=== PATIENT | female | born 1960 | race Caucasian/White ===

== ENCOUNTER 2020-05-16 08:42 | Outpatient (CLI) | payer BC ==
--- NOTE | 2020-05-16 09:40 | BD ---
EXAM: DEXA bone density examination HISTORY: 60-year-old postmenopausal female for screening COMPARISON: None FINDINGS: L1--bone mineral density 1.282 g/sq cm; T score 2.7 L2--bone mineral density 1.391 g/sq cm; T score 3.3 L3--bone mineral density 1.300 g/sq cm; T score 2.0 L4--bone mineral density 1.293 g/sq cm; T score 2.1 Total L1-L4--bone mineral density 1.314 g/sq cm; T score 2.4 Left femoral neck--bone mineral density0.749; T score -0.9 Total proximal left femur--bone mineral density 1.021; T score 0.6 IMPRESSION: Normal bone density. This patient has a 10 year WHO fracture risk of a major osteoporotic fracture of 8.2% and of a hip fracture of 0.4%.
== END 2020-05-16 08:43 | disposition home or self-care (01) ==
LOC: BICMAMMO 08:42
PROVIDERS: ATTEND Internal Medicine Rheumatology
DX: M81.0 Age-related osteoporosis without current pathological fracture (principal)
CPT/HCPCS: 77080

== ENCOUNTER 2020-05-30 12:01 | Outpatient (CLI) | payer BC ==
--- NOTE | 2020-05-30 12:17 | RAD ---
XR Knee Rt 2 View HISTORY: Right knee pain. Bilateral primary osteoarthritis of knee FINDINGS: No fracture or dislocation is identified. There are degenerative changes manifested by osteophyte for mation and joint space narrowing.
--- NOTE | 2020-05-30 12:17 | RAD ---
XR Knee Lt 2 View HISTORY: Left knee pain, bilateral primary osteoarthritis of knee FINDINGS: No fracture or dislocation is identified. There are degenerative changes manifested by osteophyte for mation and joint space narrowing.
== END 2020-05-30 12:02 | disposition home or self-care (01) ==
LOC: BICRAD 12:01
PROVIDERS: ATTEND Internal Medicine Rheumatology
DX: M17.0 Bilateral primary osteoarthritis of knee (principal)

== ENCOUNTER 2021-07-04 14:52 | Outpatient (CLI) | payer BC | END 2021-07-04 14:53 | disposition home or self-care (01) | LOC: BICMAMMO 14:52 | PROVIDERS: ATTEND Internal Medicine Rheumatology | DX: M81.0 Age-related osteoporosis without current pathological fracture (principal); M85.852 Other specified disorders of bone density and structure, left thigh | CPT/HCPCS: 77080 ==

== ENCOUNTER 2022-04-09 11:17 | Inpatient (IN) | payer BC ==
[2022-04-09 12:25] LABS: Anion Gap 23 mmol/L (10-20); BUN (Urea Nitrogen) 41 mg/dL (9.8-20.1); Calc. Creatinine Clearance 0 mL/min (70-130); Calcium 9.4 mg/dL (7.8-10.44); Carbon Dioxide 18 mmol/L (23-31); Chloride 96 mmol/L (98-107); Estimated GFR 26; Glucose 179 mg/dL (80-115); Potassium 3.3 mmol/L (3.5-5.1); Sodium 134 mmol/L (136-145)
[2022-04-09] MEDS ORDERED: NS 0.9% w/ 20 MEQ KCL 0 ML ONE (13:27)
[2022-04-09] MEDS ORDERED: NS 0.9% w/ 20 MEQ KCL 1,000 ML ONE (13:39)
[2022-04-09] MEDS ORDERED: D5 1/2 NS w/20 mEq KCL 1,000 ML ONE (14:02)
[2022-04-09] MEDS ORDERED: Acetaminophen 325 MG TAB PO PRN (15:15)
[2022-04-09] MEDS ORDERED: Ondansetron PF 4 MG/2 ML Vial IVP PRN ×2 (15:15→16:55)
[2022-04-09] MEDS ORDERED: Ondansetron ODT 4 MG TAB SL PRN (15:15)
[2022-04-09] MEDS ORDERED: Sodium Chloride 0.9% 1,000 ML IV PRN ×4 (15:30)
[2022-04-09] MEDS ORDERED: NS 0.9% w/ 20 MEQ KCL 1,000 ML/1,000 ML BAG IV PRN ×2 (15:30)
[2022-04-09] MEDS ORDERED: Dextrose 5 %-0.45 % NaCl 1,000 ML IV PRN (15:30)
[2022-04-09] MEDS ORDERED: HUMULIN R 100 UNITS in Sodium Chloride 0.9% 100 ML IVPB SCH (15:30)
[2022-04-09] MEDS ORDERED: Insulin Regular 300 UNITS/3 ML VIAL IVP SCH (15:30)
[2022-04-09] MEDS ORDERED: Dextrose 5% in Water 1,000 ML IV PRN ×2 (15:30→16:55)
[2022-04-09] MEDS ORDERED: Electrolyte Replacement Protocol FS PRN (15:35)
[2022-04-09] MEDS ORDERED: Dextrose 50% Abboject 50 ML SYRINGE SLOW IVP PRN ×2 (15:36→16:55)
[2022-04-09] MEDS: D5 1/2 NS w/20 mEq KCL 1,000 ML IV PRN ×2 (16:02→22:11)
[2022-04-09] MEDS ORDERED: hydrALAZINE 20 MG/ML VIAL SLOW IVP PRN (16:55)
[2022-04-09] MEDS ORDERED: Ondansetron ODT 4 MG TAB PO PRN (16:55)
[2022-04-09] MEDS ORDERED: HumaLOG 300 UNITS/3 ML VIAL SC PRN (16:55)
[2022-04-09] MEDS ORDERED: Acetaminophen 500 MG TAB PO PRN (16:55)
[2022-04-09] MEDS ORDERED: Electrolyte Replacement Protocol 1 EACH FS PRN (16:58)
[2022-04-09 18:44] LABS: Anion Gap 14 mmol/L (10-20); BUN (Urea Nitrogen) 36 mg/dL (9.8-20.1); Calc. Creatinine Clearance 47 mL/min (70-130); Calcium 8.8 mg/dL (7.8-10.44); Carbon Dioxide 24 mmol/L (23-31); Chloride 99 mmol/L (98-107); Estimated GFR 33; Glucose 194 mg/dL (80-115); Potassium 3.3 mmol/L (3.5-5.1); Sodium 134 mmol/L (136-145)
[2022-04-09] MEDS: Sodium Chloride 0.9% 1,000 ML IV SCH ×2 (18:48→22:12)
[2022-04-09] MEDS: cefTRIAXone\\ROCEPHIN 1 GM in Sodium Chloride 0.9% 100 ML IVPB SCH ×2 (18:49→20:12)
[2022-04-10] MEDS: D5 1/2 NS w/20 mEq KCL 1,000 ML IV PRN (02:14)
[2022-04-10 03:48] LABS: #Eosinphils 0.1 thou/uL (0.0-0.7); #Lymphocytes 1.5 thou/uL (1.20-3.40); #Monocytes 0.7 thou/uL (0.11-0.59); #Neutrophils 6.2 thou/uL (1.40-6.50); %Basophils 0.1 % (0.0-1.0); %Eosinophils 0.7 % (0.0-10.0); %Lymphocytes 17.8 % (21.0-51.0); %Monocytes 8.6 % (0.0-10.0); %Neutrophils 72.8 % (42.0-75.0); Hemoglobin 11.3 g/dL (12.0-16.0); Mean Corpuscular HGB CONC 33.4 g/dL (32.0-36.0); Mean Corpuscular Hemoglobin 29.5 pg (27.0-31.0); Mean Corpuscular Volume 88.2 fL (78.0-98.0); Mean Platelet Volume 8.6 fL (7.4-10.4); Platelet Count 212 thou/uL (130-400); RBC Distribution Width 14.1 % (11.5-14.5); Red Blood Cell (RBC) Count 3.84 mill/uL (4.20-5.40); White Blood Cell (WBC) Count 8.6 thou/uL (4.8-10.8)
[2022-04-10 04:06] LABS: Hemoglobin A1c 8.9 % (4.0-6.0)
[2022-04-10 04:08] LABS: Anion Gap 14 mmol/L (10-20); BUN (Urea Nitrogen) 23 mg/dL (9.8-20.1); Calc. Creatinine Clearance 66 mL/min (70-130); Calcium 8.1 mg/dL (7.8-10.44); Carbon Dioxide 21 mmol/L (23-31); Chloride 102 mmol/L (98-107); Estimated GFR 51; Glucose 208 mg/dL (80-115); Potassium 3.5 mmol/L (3.5-5.1); Sodium 133 mmol/L (136-145)
[2022-04-10] MEDS ORDERED: Potassium Chloride 20 MEQ TAB PO SCH (08:00)
[2022-04-10] MEDS: cefTRIAXone\\ROCEPHIN 1 GM in Sodium Chloride 0.9% 100 ML IVPB SCH (19:03)
[2022-04-10] MEDS ORDERED: cefTRIAXone\\ROCEPHIN 1 GM in Sodium Chloride 0.9% 100 ML IVPB SCH (21:00)
[2022-04-11 04:23] LABS: Anion Gap 18 mmol/L (10-20); BUN (Urea Nitrogen) 15 mg/dL (9.8-20.1); Calc. Creatinine Clearance 80 mL/min (70-130); Calcium 8.4 mg/dL (7.8-10.44); Carbon Dioxide 17 mmol/L (23-31); Chloride 102 mmol/L (98-107); Estimated GFR 64; Glucose 221 mg/dL (80-115); Potassium 3.9 mmol/L (3.5-5.1); Sodium 133 mmol/L (136-145)
[2022-04-11] MEDS: HumaLOG 300 UNITS/3 ML VIAL SC PRN (07:09)
[2022-04-11] MEDS: predniSONE 1 MG TAB PO SCH (09:23)
[2022-04-11] MEDS: Alogliptin 25 MG TAB PO SCH (09:24)
[2022-04-11] MEDS: Folic Acid 1 MG TAB PO SCH (09:24)
[2022-04-11] MEDS: Losartan 25 MG TAB PO SCH (09:25)
[2022-04-11] MEDS: glyBURIDE 5 MG TAB PO SCH (17:24)
[2022-04-12 04:07] LABS: SARS-CoV-2 NAA Rapid Test DETECTED (NotDetected)
[2022-04-12] MEDS: HumaLOG 300 UNITS/3 ML VIAL SC PRN ×2 (06:16→11:58)
[2022-04-12] MEDS: glyBURIDE 5 MG TAB PO SCH ×2 (08:14→17:27)
[2022-04-12] MEDS: predniSONE 1 MG TAB PO SCH (08:14)
[2022-04-12] MEDS: Losartan 25 MG TAB PO SCH (08:15)
[2022-04-12] MEDS: Folic Acid 1 MG TAB PO SCH (08:15)
[2022-04-12] MEDS: Alogliptin 25 MG TAB PO SCH (08:16)
[2022-04-12] MEDS ORDERED: metFORMIN 500 MG TAB PO SCH (10:15)
[2022-04-12] MEDS ORDERED: Insulin Glargine 30 UNITS/0.3 ML VIAL SC SCH ×2 (11:15→12:00)
[2022-04-12] MEDS ORDERED: Digoxin 0.5 MG/2 ML AMP SLOW IVP SCH (18:15)
[2022-04-12] MEDS ORDERED: Digoxin 0.5 MG/2 ML AMP ONE (18:20)
[2022-04-12] MEDS ORDERED: Sodium Chloride 0.9% 1,000 ML IV SCH (19:00)
[2022-04-12] MEDS: Diltiazem HCl 125 MG in Premix Bag 1 BAG IVPB SCH (19:38)
[2022-04-13 04:01] LABS: Anion Gap 16 mmol/L (10-20); BUN (Urea Nitrogen) 17 mg/dL (9.8-20.1); Calc. Creatinine Clearance 80 mL/min (70-130); Calcium 8.5 mg/dL (7.8-10.44); Carbon Dioxide 19 mmol/L (23-31); Chloride 98 mmol/L (98-107); Estimated GFR 64; Glucose 247 mg/dL (80-115); Magnesium 1.2 mg/dL (1.6-2.6); Sodium 130 mmol/L (136-145)
[2022-04-13] MEDS: Magnesium 2 GM/50 ML(in water) 2 GM in Premix Bag 1 BAG IVPB SCH ×2 (06:20→07:00)
[2022-04-13] MEDS: HumaLOG 300 UNITS/3 ML VIAL SC PRN (06:21)
[2022-04-13] MEDS ORDERED: Potassium Chloride 20 MEQ TAB PO SCH ×2 (08:00→16:45)
[2022-04-13] MEDS: Losartan 25 MG TAB PO SCH (09:32)
[2022-04-13] MEDS: Alogliptin 25 MG TAB PO SCH (09:32)
[2022-04-13] MEDS: glyBURIDE 5 MG TAB PO SCH ×2 (09:33→17:55)
[2022-04-13] MEDS: Folic Acid 1 MG TAB PO SCH (09:33)
[2022-04-13] MEDS: predniSONE 1 MG TAB PO SCH (09:33)
[2022-04-13] MEDS: Diltiazem HCl 125 MG in Premix Bag 1 BAG IVPB SCH (09:45)
[2022-04-13] MEDS: Insulin Glargine 30 UNITS/0.3 ML VIAL SC SCH (09:46)
[2022-04-13] MEDS: Enoxaparin Sodium 100 MG/ML SYRINGE SC SCH (20:44)
[2022-04-14 04:25] LABS: Anion Gap 16 mmol/L (10-20); BUN (Urea Nitrogen) 14 mg/dL (9.8-20.1); Calc. Creatinine Clearance 87 mL/min (70-130); Calcium 8.9 mg/dL (7.8-10.44); Carbon Dioxide 19 mmol/L (23-31); Chloride 100 mmol/L (98-107); Estimated GFR 70; Glucose 123 mg/dL (80-115); Magnesium 1.8 mg/dL (1.6-2.6); Potassium 3.2 mmol/L (3.5-5.1); Sodium 132 mmol/L (136-145)
[2022-04-14] MEDS ORDERED: Magnesium 2 GM/50 ML(in water) 2 GM in Premix Bag 1 BAG IVPB SCH (06:00)
[2022-04-14] MEDS ORDERED: Potassium Chloride 20 MEQ TAB PO SCH ×2 (08:00→08:15)
[2022-04-14] MEDS: Folic Acid 1 MG TAB PO SCH (08:46)
[2022-04-14] MEDS: Losartan 25 MG TAB PO SCH (08:46)
[2022-04-14] MEDS: predniSONE 1 MG TAB PO SCH (08:47)
[2022-04-14] MEDS: Alogliptin 25 MG TAB PO SCH (08:47)
[2022-04-14] MEDS: glyBURIDE 5 MG TAB PO SCH ×2 (08:47→17:02)
[2022-04-14] MEDS: Enoxaparin Sodium 100 MG/ML SYRINGE SC SCH ×2 (08:48→20:10)
[2022-04-14] MEDS: Insulin Glargine 30 UNITS/0.3 ML VIAL SC SCH (08:49)
[2022-04-14] MEDS: HumaLOG 300 UNITS/3 ML VIAL SC PRN (17:03)
[2022-04-15] MEDS: predniSONE 1 MG TAB PO SCH (07:46)
[2022-04-15] MEDS: Losartan 25 MG TAB PO SCH (07:46)
[2022-04-15] MEDS: Alogliptin 25 MG TAB PO SCH (07:47)
[2022-04-15] MEDS: Insulin Glargine 30 UNITS/0.3 ML VIAL SC SCH (07:47)
[2022-04-15] MEDS: glyBURIDE 5 MG TAB PO SCH ×2 (07:47→16:44)
[2022-04-15] MEDS: Enoxaparin Sodium 100 MG/ML SYRINGE SC SCH ×2 (07:47→21:21)
[2022-04-15] MEDS: Folic Acid 1 MG TAB PO SCH (07:47)
[2022-04-15] MEDS ORDERED: Metoprolol Tartrate 5 MG/5 ML VIAL ONE (08:18)
[2022-04-15] MEDS ORDERED: Metoprolol Tartrate 5 MG/5 ML VIAL IVP PRN (08:18)
[2022-04-15 08:55] LABS: Anion Gap 18 mmol/L (10-20); BUN (Urea Nitrogen) 12 mg/dL (9.8-20.1); Calc. Creatinine Clearance 89 mL/min (70-130); Calcium 9.1 mg/dL (7.8-10.44); Carbon Dioxide 19 mmol/L (23-31); Chloride 101 mmol/L (98-107); Estimated GFR 72; Glucose 208 mg/dL (80-115); Potassium 3.5 mmol/L (3.5-5.1); Sodium 134 mmol/L (136-145)
[2022-04-16] MEDS ORDERED: Amlodipine 10 MG TAB PO SCH (09:00)
[2022-04-16] MEDS: Folic Acid 1 MG TAB PO SCH (09:12)
[2022-04-16] MEDS: Enoxaparin Sodium 100 MG/ML SYRINGE SC SCH (09:12)
[2022-04-16] MEDS: predniSONE 1 MG TAB PO SCH (09:12)
[2022-04-16] MEDS: Amlodipine 5 MG TAB PO SCH (09:13)
[2022-04-16] MEDS: Insulin Glargine 30 UNITS/0.3 ML VIAL SC SCH (09:13)
[2022-04-16] MEDS: Losartan 25 MG TAB PO SCH (09:13)
[2022-04-16] MEDS: Alogliptin 25 MG TAB PO SCH (09:13)
[2022-04-16] MEDS: glyBURIDE 5 MG TAB PO SCH ×2 (09:14→16:01)
[2022-04-16] MEDS: HumaLOG 300 UNITS/3 ML VIAL SC PRN (17:15)
[2022-04-16] MEDS: Apixaban 5 MG TAB PO SCH (20:37)
[2022-04-17 08:17] LABS: #Basophils 0.1 thou/uL (0.0-0.2); #Eosinphils 0.1 thou/uL (0.0-0.7); #Lymphocytes 1.6 thou/uL (1.20-3.40); #Monocytes 0.9 thou/uL (0.11-0.59); #Neutrophils 5.9 thou/uL (1.40-6.50); %Basophils 1.3 % (0.0-1.0); %Eosinophils 1.1 % (0.0-10.0); %Lymphocytes 18.9 % (21.0-51.0); %Monocytes 10.2 % (0.0-10.0); %Neutrophils 68.6 % (42.0-75.0); Hemoglobin 12.6 g/dL (12.0-16.0); Mean Corpuscular HGB CONC 33.5 g/dL (32.0-36.0); Mean Corpuscular Hemoglobin 29.5 pg (27.0-31.0); Mean Corpuscular Volume 87.9 fL (78.0-98.0); Mean Platelet Volume 8.2 fL (7.4-10.4); Platelet Count 231 thou/uL (130-400); RBC Distribution Width 14.3 % (11.5-14.5); Red Blood Cell (RBC) Count 4.27 mill/uL (4.20-5.40); White Blood Cell (WBC) Count 8.5 thou/uL (4.8-10.8)
[2022-04-17 08:39] LABS: Anion Gap 14 mmol/L (10-20); BUN (Urea Nitrogen) 14 mg/dL (9.8-20.1); Calc. Creatinine Clearance 93 mL/min (70-130); Calcium 8.9 mg/dL (7.8-10.44); Carbon Dioxide 23 mmol/L (23-31); Chloride 101 mmol/L (98-107); Estimated GFR 76; Glucose 97 mg/dL (80-115); Magnesium 1.6 mg/dL (1.6-2.6); Phosphorus 3.7 mg/dL (2.3-4.7); Potassium 3.5 mmol/L (3.5-5.1); Sodium 134 mmol/L (136-145)
[2022-04-17] MEDS: Insulin Glargine 30 UNITS/0.3 ML VIAL SC SCH (09:39)
[2022-04-17] MEDS: Amlodipine 5 MG TAB PO SCH (09:40)
[2022-04-17] MEDS: Alogliptin 25 MG TAB PO SCH (09:41)
[2022-04-17] MEDS: Apixaban 5 MG TAB PO SCH ×2 (09:41→20:48)
[2022-04-17] MEDS: predniSONE 1 MG TAB PO SCH (09:41)
[2022-04-17] MEDS: Folic Acid 1 MG TAB PO SCH (09:42)
[2022-04-17] MEDS: glyBURIDE 5 MG TAB PO SCH ×2 (09:42→16:10)
[2022-04-17] MEDS: Losartan 25 MG TAB PO SCH (09:42)
[2022-04-17] MEDS ORDERED: Magnesium 2 GM/50 ML(in water) 2 GM in Premix Bag 1 BAG IVPB SCH (10:00)
[2022-04-17] MEDS ORDERED: Potassium Chloride 20 MEQ TAB PO SCH (12:00)
[2022-04-17] MEDS ORDERED: Cholecalciferol 1,000 UNITS (25 MCG) TAB PO SCH (17:30)
[2022-04-18 04:46] LABS: Magnesium 2.1 mg/dL (1.6-2.6)
[2022-04-18] MEDS: Folic Acid 1 MG TAB PO SCH (08:35)
[2022-04-18] MEDS: predniSONE 1 MG TAB PO SCH (08:36)
[2022-04-18] MEDS: Alogliptin 25 MG TAB PO SCH (08:36)
[2022-04-18] MEDS: Losartan 25 MG TAB PO SCH (08:36)
[2022-04-18] MEDS: Amlodipine 5 MG TAB PO SCH (08:36)
[2022-04-18] MEDS: glyBURIDE 5 MG TAB PO SCH ×2 (08:36→16:27)
[2022-04-18] MEDS: Apixaban 5 MG TAB PO SCH ×2 (08:37→19:59)
[2022-04-18] MEDS: Insulin Glargine 30 UNITS/0.3 ML VIAL SC SCH (08:37)
[2022-04-18] MEDS ORDERED: Cholecalciferol 1,000 UNITS (25 MCG) TAB PO SCH (09:00)
[2022-04-18] MEDS ORDERED: Labetalol HCl 100 MG/20 ML VIAL SLOW IVP PRN (11:54)
[2022-04-18] MEDS ORDERED: Ergocalciferol 1.25 MG(50,000 UNITS) CAP PO SCH (12:00)
[2022-04-18] MEDS: Cyanocobalamin (Vitamin B-12) 1,000 MCG TAB PO SCH (19:59)
[2022-04-18] MEDS: pyridOXINE 50 MG (B6) TAB PO SCH (19:59)
[2022-04-18] MEDS: Multivit, Therapeutic 1 TAB PO SCH (19:59)
[2022-04-19] MEDS: glyBURIDE 5 MG TAB PO SCH ×2 (08:50→17:44)
[2022-04-19] MEDS: Folic Acid 1 MG TAB PO SCH (08:50)
[2022-04-19] MEDS: Alogliptin 25 MG TAB PO SCH (08:50)
[2022-04-19] MEDS: Losartan 25 MG TAB PO SCH (08:51)
[2022-04-19] MEDS: Amlodipine 5 MG TAB PO SCH (08:51)
[2022-04-19] MEDS: Apixaban 5 MG TAB PO SCH ×2 (08:52→22:18)
[2022-04-19] MEDS: Insulin Glargine 30 UNITS/0.3 ML VIAL SC SCH (08:52)
[2022-04-19] MEDS: predniSONE 1 MG TAB PO SCH (08:52)
[2022-04-19 11:01] VITALS: BMI 30.8
[2022-04-19] MEDS: pyridOXINE 50 MG (B6) TAB PO SCH (22:18)
[2022-04-19] MEDS: Cyanocobalamin (Vitamin B-12) 1,000 MCG TAB PO SCH (22:18)
[2022-04-19] MEDS: Multivit, Therapeutic 1 TAB PO SCH (22:18)
[2022-04-20] MEDS ORDERED: HumaLOG 300 UNITS/3 ML VIAL SC PRN (08:46)
[2022-04-20] MEDS: glyBURIDE 5 MG TAB PO SCH (09:14)
[2022-04-20] MEDS: Folic Acid 1 MG TAB PO SCH (09:14)
[2022-04-20] MEDS: Alogliptin 25 MG TAB PO SCH (09:14)
[2022-04-20] MEDS: predniSONE 1 MG TAB PO SCH (09:14)
[2022-04-20] MEDS: Losartan 25 MG TAB PO SCH (09:14)
[2022-04-20] MEDS: Insulin Glargine 30 UNITS/0.3 ML VIAL SC SCH (09:15)
[2022-04-20] MEDS: Apixaban 5 MG TAB PO SCH (09:15)
[2022-04-20] MEDS: Amlodipine 5 MG TAB PO SCH (09:15)
[2022-04-20 13:43] VITALS: BP 150/82; TEMP 97.7
[2022-04-25] MEDS ORDERED: Ergocalciferol 1.25 MG(50,000 UNITS) CAP PO SCH (09:00)
== END 2022-04-20 12:11 | disposition swing bed (61) | DRG 637 ==
LOC: ERS 11:17 → IMCU/EMU 12:53 → 2NO 04-15 13:45 → T4-A 04-19 13:12
PROVIDERS: ADMIT Internal Medicine; ATTEND Internal Medicine
PROC: 8E0ZXY6 Isolation (ICD-10-PCS; principal; 2022-04-09)
DX: E11.10 Type 2 diabetes mellitus with ketoacidosis without coma (principal); U07.1 COVID-19; N17.9 Acute kidney failure, unspecified; E87.1 Hypo-osmolality and hyponatremia; G93.49 Other encephalopathy; M06.9 Rheumatoid arthritis, unspecified; I08.1 Rheumatic disorders of both mitral and tricuspid valves; N18.2 Chronic kidney disease, stage 2 (mild); E11.22 Type 2 diabetes mellitus with diabetic chronic kidney disease; I12.9 Hypertensive chronic kidney disease with stage 1 through stage 4 chronic kidney disease, or unspecified chronic kidney disease; F41.9 Anxiety disorder, unspecified; E87.6 Hypokalemia; E55.9 Vitamin D deficiency, unspecified; R00.1 Bradycardia, unspecified; I48.0 Paroxysmal atrial fibrillation; Z79.84 Long term (current) use of oral hypoglycemic drugs; Z83.3 Family history of diabetes mellitus; Z82.0 Family history of epilepsy and other diseases of the nervous system; Z80.51 Family history of malignant neoplasm of kidney
CPT/HCPCS: 36415; 36416; 70450; 80048; 82010; 82306; 83036; 83735; 84100; 84443; 85025; 93005; 93010; 93306; 99285; J0360; J0696; J1160; J1650; J1815; J2405; J3475; J3480; J3490; J7050; J7512; U0002